=== PATIENT | female | born 1970 | race Caucasian/White ===

== ENCOUNTER 2016-12-07 09:46 | Outpatient (CLI) | payer OTHER | END 2016-12-07 09:47 | disposition home or self-care (01) | DX: N60.02 Solitary cyst of left breast (principal) ==

== ENCOUNTER 2017-05-04 14:08 | Outpatient (CLI) | payer OTHER ==
--- NOTE | 2017-05-05 09:05 | Ultrasound Report ---
THYROID ULTRASOUND: 05/04/2017 CLINICAL INDICATION: Followup cyst. 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 FINDINGS: The right lobe measures 5.0 x 1.8 x 1.7 cm, and the left lobe measures 5.7 x 1.3 x 1.3 cm. The isthmus measures 2 mm. The cyst in the upper pole of the right lobe is stable, measuring 2.3 x 1.4 x 1.2 cm (previously 2.3 x 1.5 x 1.2 cm). No new solid nodule is appreciated. IMPRESSION: STABLE CYST IN THE UPPER POLE OF THE RIGHT LOBE OF THE THYROID. JOB #: [id number] EXT JOB #:[id number]
== END 2017-05-04 14:09 | disposition home or self-care (01) ==
LOC: DI 14:08
PROVIDERS: ATTEND Physician Assistant Medical
DX: E04.1 Nontoxic single thyroid nodule (principal)
CPT/HCPCS: 76536

== ENCOUNTER 2017-07-26 09:13 | Outpatient (CLI) | payer OTHER ==
--- NOTE | 2017-07-26 10:44 | XRAY Report ---
MODIFIED BARIUM SWALLOW: 07/26/2017 CLINICAL INDICATION: Dysphagia. FINDINGS: Various consistencies of barium were prepared and administered in conjunction with speech pathology. There was no evidence of penetration or aspiration with any administered consistency. Plea se also refer to full report from speech pathology. IMPRESSION: NO EVIDENCE OF PENETRATION OR ASPIRATION. FLUOROSCOPY TIME: 51 SECONDS; 1 SPOT IMAGE OBTAINED (CINE FLUOROSCOPY RECORDED). JOB #: [id number] EXT JOB #:[id number]
== END 2017-07-26 09:14 | disposition home or self-care (01) ==
LOC: DI 09:13
PROVIDERS: ATTEND Nurse Practitioner Primary Care
DX: R13.10 Dysphagia, unspecified (principal)
CPT/HCPCS: 74230

== ENCOUNTER 2017-10-27 12:23 | Outpatient (CLI) | payer OTHER ==
[2017-10-29 14:27] LABS: TEST RESULT REPORT
[2017-11-01 16:37] LABS: LEAD (B) COLLECTION SAMPLE Venous
== END 2017-10-27 12:24 | disposition home or self-care (01) ==
LOC: LAB 12:23
PROVIDERS: ATTEND Physician Assistant Medical
DX: R23.2 Flushing (principal); M25.50 Pain in unspecified joint; R55 Syncope and collapse
CPT/HCPCS: 36415; 81599; 82175; 83520; 83655; 83825

== ENCOUNTER 2017-10-29 16:40 | Outpatient (CLI) | payer OTHER ==
--- NOTE | 2017-10-30 04:54 | MRI Report ---
EXAM: MRI BRAIN WITHOUT CONTRAST EXAM DATE: 10/29/2017 05:37 PM. CLINICAL HISTORY: ORTHOSTATIC SYNCOPE, FLUSHING, DYSPHAGIA COMPARISON: None. TECHNIQUE: Multiplanar, multisequence T1-weighted and fluid-sensitive MR sequences of the brain were performed. Sequences optimized for routine evaluation. Other: None. IV Contrast: None. FINDINGS: Brain Volume: Normal for age. Parenchyma/Dura: No mass, acute infarct or hemorrhage. No white matter lesions identified. Ventricles/Cisterns: No hydrocephalus. No abnormal extra-axial fluid collection or hemorrhage. Orbits: Symmetric and unremarkable. Sella Turcica: The pituitary gland, cavernous sinuses, suprasellar cistern and optic chiasm are unrem arkable. IAC: Symmetric and unremarkable. Vasculature: Normal signal flow void is seen in the major arterial structures at the skull base. Sinuses: No acute appearing sinus disease. Bones: No focal pathologic appearing marrow signal changes. Other: None. IMPRESSION: 1.No acute or focal intracranial abnormality. [facility] Referring Provider Line: [phone] SITE ID: [id number]
== END 2017-10-29 16:41 | disposition home or self-care (01) ==
LOC: DI 16:40
PROVIDERS: ATTEND Physician Assistant Medical
DX: R55 Syncope and collapse (principal); R23.2 Flushing; M25.50 Pain in unspecified joint; R13.10 Dysphagia, unspecified
CPT/HCPCS: 70551

== ENCOUNTER 2018-01-06 09:54 | Outpatient (CLI) | payer OTHER ==
--- NOTE | 2018-01-07 15:46 | Mammography Report ---
DIGITAL SCREENING MAMMOGRAM: 01/06/2018 CLINICAL INDICATION: A 47-year-old with history of late childbearing, history of benign right breast biopsy, for screening. COMPARISON: 11/2016, 09/2015, 09/2011. TECHNIQUE: Routine CC and MLO projections were obtained of the breasts. Bilateral laterally exaggerated craniocaudal views. FINDINGS: The breasts again demonstrate heterogeneously dense fibroglandular parenchyma bilaterally. Coarse and punctate, typically benign calcifications are present. There is a shifting pattern of circumscribed nodules bilaterally, compatible with waxing and waning cysts. No suspicious masses, clustered microcalcifications, or regions of architectural distortion are identified. IMPRESSION: BENIGN FINDINGS. RECOMMENDATION: ROUTINE ANNUAL SCREENING UNLESS OTHERWISE CLINICALLY INDICATED. BIRADS CATEGORY 2-BENIGN FINDINGS. STANDARD QUALIFYING STATEMENTS: 1. This examination was reviewed with the aid of Computer-Aided Detection (CAD). 2. A negative or benign imaging report should not delay biopsy if clinically suspicious findings are present. Consider surgical consultation if warranted. More than 5% of cancers are not identified by imaging. 3. Dense breasts may obscure an underlying neoplasm. TD: 01/07/2018 15:43
== END 2018-01-06 09:55 | disposition home or self-care (01) ==
LOC: DI 09:54
PROVIDERS: ATTEND Physician Assistant Medical
DX: Z12.31 Encounter for screening mammogram for malignant neoplasm of breast (principal)
CPT/HCPCS: 77067

== ENCOUNTER 2018-02-09 09:00 | Outpatient (CLI) | payer OTHER | END 2018-02-09 09:01 | disposition home or self-care (01) | LOC: LAB.R 09:00 | PROVIDERS: ATTEND Physician Assistant Medical | DX: R53.83 Other fatigue (principal); R23.2 Flushing | CPT/HCPCS: 81599; 83497 ==

== ENCOUNTER 2018-02-10 00:42 | Outpatient (CLI) | payer OTHER | END 2018-02-10 00:43 | disposition home or self-care (01) | LOC: LAB 00:42 | PROVIDERS: ATTEND Physician Assistant Medical | DX: R53.83 Other fatigue (principal); R23.2 Flushing; M25.50 Pain in unspecified joint | CPT/HCPCS: 36415; 81599; 82784; 83520 ==

== ENCOUNTER 2018-02-19 08:40 | Outpatient (CLI) | payer OTHER ==
[2018-02-19 09:22] LABS: BASOPHILS % (AUTO) 0.7 %; EOSINOPHILS # (AUTO) 0.1 10^3/uL (0.0-0.7); EOSINOPHILS % (AUTO) 1.6 %; HGB - HEMOGLOBIN 13.5 g/dL (12.0-16.0); LYMPHOCYTES # (AUTO) 1.4 10^3/uL (1.5-3.5); MEAN CORPUSCULAR HEMOGLOBIN 30.5 pg (27.0-31.0); MEAN CORPUSCULAR VOLUME 89.6 fL (81.0-99.0); MEAN PLATELET VOLUME 7.7 fL (7.9-10.8); MONOCYTES # (AUTO) 0.5 10^3/uL (0.0-1.0); MONOCYTES % (AUTO) 9.2 %; NEUTROPHILS % (AUTO) 60.5 %; PLT - PLATELET COUNT 239 10^3/uL (130-450); RED BLOOD COUNT 4.43 10^6/uL (4.20-5.40); RED CELL DISTRIBUTION WIDTH 12.8 % (12.0-15.0)
[2018-02-19 09:41] LABS: ALBUMIN 4.6 g/dL (3.2-5.5); ALBUMIN/GLOBULIN RATIO 1.8 (1.0-2.2); ALKALINE PHOSPHATASE 45 IU/L (42-121); ALT ALANINE AMINOTRANSFERASE 18 IU/L (10-60); AST ASPARTATE AMINOTRANSFERASE 19 IU/L (10-42); BILIRUBIN,TOTAL 0.6 mg/dL (0.2-1.0); BUN - BLOOD UREA NITROGEN 12 mg/dL (6-20); CALCIUM 9.2 mg/dL (8.5-10.3); CARBON DIOXIDE - CO2 25 mmol/L (21-32); CHLORIDE 104 mmol/L (101-111); CHOL/HDL RATIO 2.4 (<4.4); CHOLESTEROL 136 mg/dL; CREATININE 0.6 mg/dL (0.4-1.0); GFR - MDRD 107 (>89); GLUCOSE 84 mg/dL (70-100); HDL CHOLESTEROL 57 mg/dL; SODIUM 136 mmol/L (135-145); TOTAL PROTEIN 7.2 g/dL (6.7-8.2)
[2018-02-19 10:45] LABS: LDL CHOLESTEROL,DIRECT 69 mg/dL; LDLD/HDL RATIO 1.2 (<4.4)
== END 2018-02-19 08:41 | disposition home or self-care (01) ==
LOC: LAB 08:40
PROVIDERS: ATTEND Physician Assistant Medical
DX: Z00.00 Encounter for general adult medical examination without abnormal findings (principal)
CPT/HCPCS: 36415; 80053; 80061; 83721; 84443; 85025

== ENCOUNTER 2018-02-25 10:44 | Outpatient (CLI) | payer OTHER ==
[2018-02-25] MEDS ORDERED: IOPAMIDOL-300 100 ML VIAL ONE (11:12)
[2018-02-25] MEDS ORDERED: IOPAMIDOL-300 50 ML VIAL ONE (11:12)
[2018-02-25] MEDS ORDERED: IOPAMIDOL-300 50 ML VIAL PO ONE (13:03)
[2018-02-25] MEDS ORDERED: IOPAMIDOL-300 100 ML VIAL IVP ONE (13:03)
--- NOTE | 2018-02-25 14:01 | CT Report ---
CT CHEST WITH CONTRAST: 02/25/2018 CLINICAL INDICATION: Fatigue, flushing, polyarthralgia, dysphagia. TECHNIQUE: Axial CT images of the chest were obtained with 100 mL Isovue [address] is available for comparison. FINDINGS: The heart and great vessels are unremarkable. No hilar or mediastinal lymphadenopathy is present. No axillary adenopathy is seen. The lungs are clear. No effusion or pneumothorax is present. The thyroid demonstrates a cyst in the right lobe, previously seen on thyroid ultrasound of 05/04/2017. Please also refer to separate CT of the abdomen and pelvis. Osseous structures demonstrate minimal degenerative changes. IMPRESSION: NORMAL CHEST CT. In accordance with CT protocol optimization, one or more of the following dose reduction techniques were utilized for this exam: automated exposure control, adjustment of mA and/or KV based on patient size, or use of iterative reconstructive technique. TD: 02/25/2018 14:00
--- NOTE | 2018-02-25 14:05 | CT Report ---
CT ABDOMEN AND PELVIS WITH CONTRAST; 02/25/2018 CLINICAL INDICATION: Fatigue, flushing, polyarthralgia, dysphagia. COMPARISON: CT 08/19/2012. TECHNIQUE: Axial CT images of the abdomen and pelvis were obtained with 100 mL Isovue 300 intravenously as well as oral contrast. FINDINGS: ABDOMEN: The liver, spleen, pancreas, kidneys and adrenal glands are unremarkable. The gallbladder is not dilated. No bowel dilatation, free gas, or free fluid is present. No abdominal adenopathy is seen. PELVIS: The patient is status post hysterectomy. No pelvic adenopathy or free fluid is present. Osseous structures are unremarkable. IMPRESSION: POSTOPERATIVE CHANGES OF HYSTERECTOMY. OTHERWISE, NORMAL CT OF THE ABDOMEN AND PELVIS WITH CONTRAST. In accordance with CT protocol optimization, one or more of the following dose reduction techniques were utilized for this exam: automated exposure control, adjustment of mA and/or KV based on patient size, or use of iterative reconstructive technique. TD: 02/25/2018 14:03
== END 2018-02-25 10:45 | disposition home or self-care (01) ==
LOC: DI 10:44
PROVIDERS: ATTEND Physician Assistant Medical
DX: R53.83 Other fatigue (principal); R23.2 Flushing; M25.50 Pain in unspecified joint; R13.10 Dysphagia, unspecified; Z90.710 Acquired absence of both cervix and uterus
CPT/HCPCS: 71260; 74177; Q9967

== ENCOUNTER 2019-03-21 14:32 | Outpatient (CLI) | payer OTHER ==
--- NOTE | 2019-03-21 16:05 | XRAY Report ---
Reason: PATY DANLOS SYNDROME,NECK PAIN Procedure Date: 03/21/2019 Accession Number: [id number] / [id number] Procedure: XR - Cervical Spine w/Flex/Ext CPT Code: FULL RESULT: EXAM: CERVICAL SPINE RADIOGRAPHY EXAM DATE: 03/21/2019 03:15 PM. CLINICAL HISTORY: Paty-Danlos syndrome, neck pain. COMPARISONS: None. TECHNIQUE: 7 views. FINDINGS: Alignment: Preserved. No spondylolisthesis or scoliosis. No abnormal motion is seen on flexion and extension views. Bones: The cervical vertebral bodies and posterior elements are well-visualized from the skull base through C7-T1. No fractures or bone lesions. Disks: Normal. Disk heights are maintained. Facets: No degenerative disease. Neural Foramina: The neural foramina have bony patency bilaterally. Soft Tissues: Normal. No prevertebral soft tissue swelling. The visualized lung apices are clear. IMPRESSION: Preserved alignment of the cervical spine. Recommendation: Depending on the overall presentation, consider workup for underlying vascular etiology. Paty-Danlos predisposes to cardiovascular derangement in the thoracic outlet region. [facility]
== END 2019-03-21 14:33 | disposition home or self-care (01) ==
LOC: DI 14:32
PROVIDERS: ATTEND Internal Medicine Rheumatology
DX: Q79.6 Ehlers-Danlos syndromes (principal); M54.2 Cervicalgia
CPT/HCPCS: 72052

== ENCOUNTER 2019-07-21 08:03 | Outpatient (CLI) | payer OTHER ==
[2019-07-21 10:34] LABS: ALBUMIN 4.3 g/dL (3.2-5.5); ALBUMIN/GLOBULIN RATIO 1.5 (1.0-2.2); ALKALINE PHOSPHATASE 44 IU/L (42-121); ALT ALANINE AMINOTRANSFERASE 22 IU/L (10-60); AST ASPARTATE AMINOTRANSFERASE 21 IU/L (10-42); BILIRUBIN,TOTAL 0.4 mg/dL (0.2-1.0); BUN - BLOOD UREA NITROGEN 13 mg/dL (6-20); CALCIUM 9.1 mg/dL (8.5-10.3); CARBON DIOXIDE - CO2 27 mmol/L (21-32); CHLORIDE 102 mmol/L (101-111); CHOL/HDL RATIO 2.1 (<4.4); CHOLESTEROL 137 mg/dL; CREATININE 0.7 mg/dL (0.4-1.0); GFR - MDRD 89 (>89); GLUCOSE 75 mg/dL (70-100); HDL CHOLESTEROL 65 mg/dL; SODIUM 137 mmol/L (135-145); TOTAL PROTEIN 7.1 g/dL (6.7-8.2)
[2019-07-21 10:47] LABS: THYROID STIMULATING HORMONE 3.03 uIU/mL (0.34-5.60)
[2019-07-21 17:24] LABS: BASOPHILS # (AUTO) 0.1 10^3/uL (0.0-0.1); BASOPHILS % (AUTO) 0.6 %; EOSINOPHILS # (AUTO) 0.2 10^3/uL (0.0-0.7); EOSINOPHILS % (AUTO) 1.9 %; HGB - HEMOGLOBIN 12.6 g/dL (12.0-16.0); LYMPHOCYTES % (AUTO) 25.3 %; MEAN CORPUSCULAR HEMOGLOBIN 30.4 pg (27.0-31.0); MEAN CORPUSCULAR HGB CONC 32.4 g/dL (32.0-36.0); MEAN PLATELET VOLUME 10.4 fL (7.9-10.8); MONOCYTES # (AUTO) 0.6 10^3/uL (0.0-1.0); MONOCYTES % (AUTO) 7.3 %; NEUTROPHILS % (AUTO) 64.5 %; PLT - PLATELET COUNT 268 10^3/uL (130-450); RED BLOOD COUNT 4.14 10^6/uL (4.20-5.40); RED CELL DISTRIBUTION WIDTH 13.1 % (12.0-15.0); WHITE BLOOD COUNT 7.7 x10^3/uL (4.8-10.8)
== END 2019-07-21 08:04 | disposition home or self-care (01) ==
LOC: LAB.S 08:03
PROVIDERS: ATTEND Nurse Practitioner
DX: Z00.00 Encounter for general adult medical examination without abnormal findings (principal); Q79.6 Ehlers-Danlos syndromes; E04.1 Nontoxic single thyroid nodule; R55 Syncope and collapse; R53.83 Other fatigue
CPT/HCPCS: 36415; 80053; 80061; 82306; 82607; 83721; 84443; 85025

== ENCOUNTER 2019-07-25 12:17 | Outpatient (CLI) | payer OTHER ==
--- NOTE | 2019-07-25 15:41 | MRI Report ---
Reason: NEUROPATHY,PATY DANLOS SYNDROME Procedure Date: 07/25/2019 Accession Number: [id number] / [id number] Procedure: MRI - Cervical Spine W/O CPT Code: FULL RESULT: EXAM: MRI CERVICAL SPINE WITHOUT CONTRAST EXAM DATE: 07/25/2019 01:25 PM. CLINICAL HISTORY: Neuropathy, Paty-Danlos syndrome. Neck pain, left shoulder and arm pain. COMPARISONS: None. TECHNIQUE: Multiplanar, multisequence T1-weighted and fluid-sensitive sequences of the cervical spine without contrast. Other: None. FINDINGS: There is straightening of the normal cervical lordosis. There is a mild decrease in intervertebral disk space height at C3-C4, C4-C5, C5-C6, and C6-C7. There is diffuse desiccation of the disk spaces throughout the cervical spine. There are normal signal intensities demonstrated throughout the cervical spinal cord. The craniocervical junction is normal. The bone marrow signal intensities are normal. There is a T1 and T2 hyperintense lesion of the right thyroid lobe measuring 12 x 9 x 13 mm (9, 601). This may reflect a colloid cyst. C2-C3: There is no significant disk bulge, central or foraminal stenosis. The facets are normal. C3-C4: There is mild uncovertebral hypertrophy producing mild narrowing of the right neural foramen. The remainder of the level is normal. C4-C5: There is a small central extrusion of the disk with annular tear producing a minimal central canal stenosis. There is no significant foraminal stenosis. The facets are normal. C5-C6: There is a small disk osteophyte complex with superimposed central extrusion of the disk producing a mild central canal stenosis. There is no significant foraminal stenosis. The facets are normal. C6-C7: There is a small disk osteophyte complex with a right paracentral protrusion of the disk producing a mild central canal stenosis. The uncovertebral hypertrophy produces moderate right and mild left neural foraminal narrowing. C7-T1: There is no significant disk bulge, central or foraminal stenosis. The facets are normal. IMPRESSION: 1. There is a small central extrusion of the disk at C4-C5 with annular tear producing a minimal central canal stenosis. 2. There is a small disk osteophyte complex with superimposed central extrusion of the disk at C5-C6 producing a mild central canal stenosis. 3. There is a small disk osteophyte complex with a right paracentral protrusion of the disk producing a mild central canal stenosis at C6-C7.
--- NOTE | 2019-07-25 17:59 | MRI Report ---
Reason: NEUROPATHY,PATY DANLOS SYNDROME Procedure Date: 07/25/2019 Accession Number: [id number] / [id number] Procedure: MRI - Thoracic Spine W/O CPT Code: FULL RESULT: EXAM: MRI THORACIC SPINE WITHOUT CONTRAST EXAM DATE: 07/25/2019 01:39 PM. CLINICAL HISTORY: Neuropathy, Paty Danlos syndrome. COMPARISONS: None. TECHNIQUE: Multiplanar, multisequence T1-weighted and fluid-sensitive sequences of the thoracic spine from C7 to L1 without contrast. Other: None. FINDINGS: Spinal Canal: There is a small focal central area of abnormal increased T2 signal in the central cord from about T5-T6 through the conus at T12. This T2 hyperintensity is about 1 mm in diameter. No adjacent masses or other areas of abnormal signal. Alignment: No scoliosis or spondylolisthesis. Bone Marrow: T11 shows some increased T1 and T2 signal in the vertebral body which suppresses with STIR imaging. Similar but smaller focus is seen at T8. Disk Levels/Facets: Mild multilevel disk space height loss and disk dehydration from C7-T1 to about T8-T9. C7-T1: Unremarkable. T1-T2: Unremarkable. T2-T3: Unremarkable. T3-T4: Unremarkable. T4-T5: Unremarkable. T5-T6: Unremarkable. T6-T7: T6-T7 shows a tiny right paracentral disk bulge. No stenosis. Normal facets. T7-T8: T7-T8 shows a small right paracentral disk protrusion touching the cord, no abnormal signal. No stenosis. T8-T9: Unremarkable. T9-T10: Unremarkable. T10-T11: Unremarkable. T11-T12: Unremarkable. T12-L1: Unremarkable. Musculature: Normal. No edema or fatty atrophy. Other: The visualized lungs, mediastinum, and abdominal cavity are unremarkable. IMPRESSION: 1. 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 2. No mass or abnormal signal in the cord. 3. T7-T8 shows a small right paracentral disk protrusion which touches the cord. No abnormal cord signal otherwise. No stenosis. 4. T6-T7 likewise shows a tiny right paracentral disk bulge. No stenosis. [facility]
== END 2019-07-25 12:18 | disposition home or self-care (01) ==
LOC: DI 12:17
PROVIDERS: ATTEND Nurse Practitioner
DX: G62.9 Polyneuropathy, unspecified (principal); Q79.6 Ehlers-Danlos syndromes; M50.221 Other cervical disc displacement at C4-C5 level; M48.02 Spinal stenosis, cervical region; M25.78 Osteophyte, vertebrae; M51.24 Other intervertebral disc displacement, thoracic region
CPT/HCPCS: 72141; 72146

== ENCOUNTER 2019-08-01 09:17 | Outpatient (CLI) | payer OTHER ==
[2019-08-01] MEDS ORDERED: IOTHALAMATE MEGLUMINE 50 ML VIAL ONE (09:38)
[2019-08-01] MEDS ORDERED: BUFFERED LIDOCAINE 10 ML SYRINGE ONE (09:38)
[2019-08-01] MEDS ORDERED: GADOPENTETATE DIMEGLUMINE 5 ML VIAL IVP ONE ×2 (09:39→11:11)
[2019-08-01] MEDS ORDERED: BUFFERED LIDOCAINE 10 ML SYRINGE IU ONE (11:11)
[2019-08-01] MEDS ORDERED: IOTHALAMATE MEGLUMINE 50 ML VIAL IVP ONE (11:11)
--- NOTE | 2019-08-01 13:31 | MRI Report ---
Reason: NEUROPATHY,YONI DANLOS SYNDROME Procedure Date: 08/01/2019 Accession Number: [id number] / [id number] Procedure: MRI - Arthrogram Shoulder RT CPT Code: FULL RESULT: EXAM: RIGHT SHOULDER MRI ARTHROGRAM WITH CONTRAST EXAM DATE: 08/01/2019 12:19 PM. CLINICAL HISTORY: NEUROPATHY,YONI DANLOS SYNDROME. COMPARISON: ARTHROGRAM 08/01/2019 10:25 AM. TECHNIQUE: Multiplanar, multisequence T1-weighted and fluid-sensitive sequences of the shoulder after an arthrographic injection of dilute gadolinium, dictated under a separate exam. Other: None. FINDINGS: Acromioclavicular Region: The acromion is type I. The acromioclavicular joint is unremarkable. The coracoacromial and coracoclavicular ligaments are intact. There is no contrast or fluid in the subacromial/subdeltoid bursa. Glenohumeral Region: No subluxation. No loose bodies. The articular cartilage is unremarkable. The glenohumeral ligaments and joint capsule are unremarkable. Bone Marrow: No fracture, marrow edema or bone lesions. Labrum: Free edge fraying at the superior aspect of the labrum. No discrete labral tear is seen. Biceps Tendon: The long head of the biceps tendon and biceps gabbie are intact. Musculature/Rotator Cuff: There is an approximately 1.1 x 0.9 cm low-grade partial thickness articular surface tear at the anterior distal aspect of the supraspinatus tendon. The infraspinatus, teres minor, and subscapularis tendons are unremarkable. No edema or fatty atrophy. Other: The subcutaneous tissues are unremarkable. IMPRESSION: 1. Free edge fraying of the superior aspect of the labrum. No discrete labral tear is seen. 2. Focal low-grade partial-thickness articular surface tear at the anterior distal aspect of the supraspinatus tendon. [facility]
--- NOTE | 2019-08-01 17:06 | XRAY Report ---
Reason: NEUROPATHY,YONI DANLOS SYNDROME Procedure Date: 08/01/2019 Accession Number: [id number] / [id number] Procedure: FL - Arthrogram Needle Placement CPT Code: FULL RESULT: EXAM: RIGHT SHOULDER ARTHROGRAPHIC INJECTION WITH FLUOROSCOPIC GUIDANCE EXAM DATE: 08/01/2019 10:26 AM. CLINICAL HISTORY: NEUROPATHY,YONI DANLOS SYNDROME. Right shoulder pain with limited range of motion COMPARISON: None. TECHNIQUE: The risks, benefits, and alternatives of the procedure were discussed with the patient. All questions were answered. Written and verbal consent were obtained. The right glenohumeral joint was marked under fluoroscopy and prepped and draped in a sterile manner. Local anesthesia was performed with 1% lidocaine. A 22-gauge needle was then inserted into the glenohumeral joint. 10 mL of a solution containing 25% 1% lidocaine, 25% iodinated contrast, and a 1:200 dilution of gadolinium contrast in sterile saline was then injected. The needle was removed without immediate complication. Other: None. Fluoroscopy Time: 29 seconds. Number of Images: 3. FINDINGS: Bones and joints: No fracture or subluxation. Injection: Fluoroscopic images demonstrate needle placement and contrast in the right glenohumeral joint. No contrast extravasation outside of the glenohumeral joint. IMPRESSION: Successful fluoroscopically guided arthrographic injection of the right shoulder prior to MRI. [facility]
== END 2019-08-01 09:18 | disposition home or self-care (01) ==
LOC: DI 09:17
PROVIDERS: ATTEND Nurse Practitioner
DX: M75.101 Unspecified rotator cuff tear or rupture of right shoulder, not specified as traumatic (principal); Q79.6 Ehlers-Danlos syndromes
CPT/HCPCS: 23350; 73222; 77002; Q9961

== ENCOUNTER 2019-08-03 10:20 | Outpatient (CLI) | payer OTHER ==
--- NOTE | 2019-08-03 15:50 | Mammography Report ---
Reason: SCREENING MAMMO Procedure Date: 08/03/2019 Accession Number: [id number] / [id number] Procedure: MGS - Screening Mammo Dig Bilat CPT Code: FULL RESULT: EXAM: Screening Mammo Dig Bilat DATE: 08/03/2019 10:52 AM CLINICAL HISTORY: Routine screening TECHNIQUE: (B) - Bilateral CC and MLO views were obtained. COMPARISON: 01/06/2018, 12/07/2016, 10/03/2015 PARENCHYMAL PATTERN: (VD) - The breasts demonstrate extremely dense parenchyma bilaterally, limiting the sensitivity of mammography. FINDINGS: No significant interval change. There are no suspicious masses, calcifications, or areas of distortion. Left breast nodule consistent with a cyst has decreased in size. IMPRESSION: Negative examination. BI-RADS category 1. RECOMMENDATION: (ANNUAL) - Recommend routine annual screening mammography. BI-RADS CATEGORY: (1) - Negative. STANDARD QUALIFYING STATEMENTS: 1. This examination was not reviewed with the aid of Computer-Aided Detection (CAD). 2. A negative or benign imaging report should not preclude biopsy if clinically suspicious findings are present. 3. Dense breasts may obscure an underlying neoplasm. 4. This examination was reviewed without the aid of 3D breast imaging (tomosynthesis).
== END 2019-08-03 10:21 | disposition home or self-care (01) ==
LOC: DI.S 10:20
PROVIDERS: ATTEND Nurse Practitioner
DX: Z12.31 Encounter for screening mammogram for malignant neoplasm of breast (principal)
CPT/HCPCS: 77067

== ENCOUNTER 2019-09-12 11:17 | Outpatient (CLI) | payer OTHER ==
[2019-09-12 12:02] LABS: CREATINE KINASE MB 1.9 ng/mL (0.6-6.3)
== END 2019-09-12 11:18 | disposition home or self-care (01) ==
LOC: LAB 11:17
PROVIDERS: ATTEND Family Medicine
DX: R07.89 Other chest pain (principal)
CPT/HCPCS: 36415; 82553; 84484

== ENCOUNTER 2021-08-18 23:52 | Emergency (ER) | payer BC, OTHER ==
--- NOTE | 2021-08-19 02:37 | ED Physician Documentation ---
PD HPI ABD PAIN - Stated complaint Stated Complaint: ABD PX - Chief complaint Chief Complaint: Abd Pain - History obtained from History obtained from: Patient - History of Present Illness Timing - onset: Enter time (21:30), Today Timing - details: Abrupt onset Pain level now: 4 Quality: Sharp Location: Periumbilical Improved by: Laying still Worsened by: Palpation Associated symptoms: No: Fever, Nausea, Vomiting Similar symptoms before: Has not had sx before Recently seen: Not recently seen - Additional information Additional information: since approximately 9:30 PM tonight, while lying on floor at home stretching, sudden onset severe tearing abdominal pain, predominantly infraumbilical area radiating to right groin and right lower back. pain has improved but not resolved. Patient has EDS (not yet subtyped) and is particularly concerned about AAA (she does not have any known h/o aneurysm). Review of Systems Constitutional: reports: Reviewed and negative Cardiac: reports: Reviewed and negative Respiratory: reports: Reviewed and negative GI: reports: Abdominal Pain. 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 - Past Surgical History Past Surgical History: Yes /SENIOR WRITER: Hysterectomy, Other - Present Medications Home Medications: Ambulatory Orders Medication Instructions Recorded Confirmed Citalopram [CeleXA] 10 mg PO ONCE 08/19/21 08/19/21 Estradiol [Estrace] 42.5 gm VG DAILY 08/19/21 08/19/21 - Allergies Allergies/Adverse Reactions: Allergies Allergy/AdvReac Type Severity Reaction Status Date / Time cephalexin [From Keflex] Allergy Unknown Verified 08/19/21 00:01 Penicillins Allergy Unknown Verified 08/19/21 00:01 Sulfa (Sulfonamide Allergy Unknown Verified 08/19/21 00:01 Antibiotics) valacyclovir [From Valtrex] Allergy Unknown Verified 08/19/21 00:01 vancomycin Allergy Unknown Verified 08/19/21 00:01 - Social History Does the pt smoke?: No Smoking Status: Never smoker Does the pt drink ETOH?: No Does the pt have substance abuse?: No - Immunizations Immunizations are current?: Yes PD ED PE NORMAL - Vitals Vital signs reviewed: Yes - General General: Alert and oriented X 3, No acute distress, Well developed/nourished - Cardiac Cardiac: RRR, No murmur - Respiratory Respiratory: No respiratory distress, Clear bilaterally - Abdomen Abdomen: Soft, Other (mild TTP midline immediately inferior to umbilicus without rebound or guarding) - Derm Derm: Normal color, Warm and dry - Extremities Extremities: No edema Results - Vitals Vitals: Oxygen O2 Source Room air - Labs Labs: Laboratory Tests 08/19/21 08/19/21 03:04 03:04 WBC 7.5 RBC 4.19 L Hgb 12.8 Hct 38.8 MCV 92.6 MCH 30.5 MCHC 33.0 RDW 13.4 Plt Count 271 MPV 9.3 Neut # (Auto) 4.3 Lymph # (Auto) 2.4 [place] # (Auto) 0.6 Eos # (Auto) 0.1 Baso # (Auto) 0.0 Absolute Nucleated RBC 0.00 Nucleated RBC % 0.0 Sodium 140 Potassium 4.1 Chloride 101 Carbon Dioxide 27 Anion Gap 12.0 BUN 15 Creatinine 0.8 Estimated GFR (MDRD) 76 L Glucose 96 Calcium 9.7 - Rads (name of study) CT A/P angio with runoff Radiology: Prelim report reviewed, See rad report PD MEDICAL DECISION MAKING - ED course Complexity details: reviewed results, re-evaluated patient, considered differential, d/w patient ED course: CT A/P angio with runoff: no acute/emergent/concerning findings. No evidence of aneurysm or dissection. Results d/w patient and she is relieved that there are no vascular abnormalities on tonights testing. She says her symptoms have continued to improve and declines analgesics. She is comfortable with d/c home, follow up with primary care provider, return if worse. Departure - Departure Disposition: 01 Home, Self Care Clinical Impression: Abdominal pain Condition: Good Instructions: ED Abdominal Pain Unkn Cause Follow-Up: MARTHA SHEPHERD PA-C [Primary Care Provider] - Discharge Date/Time: 08/19/21 06:29
[2021-08-19 03:09] LABS: BASOPHILS % (AUTO) 0.5 %; EOSINOPHILS # (AUTO) 0.1 10^3/uL (0.0-0.7); EOSINOPHILS % (AUTO) 1.1 %; HCT - HEMATOCRIT 38.8 % (37.0-47.0); HGB - HEMOGLOBIN 12.8 g/dL (12.0-16.0); LYMPHOCYTES # (AUTO) 2.4 10^3/uL (1.5-3.5); LYMPHOCYTES % (AUTO) 31.8 %; MEAN CORPUSCULAR HEMOGLOBIN 30.5 pg (27.0-31.0); MEAN CORPUSCULAR VOLUME 92.6 fL (81.0-99.0); MEAN PLATELET VOLUME 9.3 fL (7.9-10.8); MONOCYTES # (AUTO) 0.6 10^3/uL (0.0-1.0); MONOCYTES % (AUTO) 8.6 %; NEUTROPHILS # (AUTO) 4.3 10^3/uL (1.5-6.6); NEUTROPHILS % (AUTO) 57.7 %; PLT - PLATELET COUNT 271 10^3/uL (130-450); RED BLOOD COUNT 4.19 10^6/uL (4.20-5.40); RED CELL DISTRIBUTION WIDTH 13.4 % (12.0-15.0); WHITE BLOOD COUNT 7.5 x10^3/uL (4.8-10.8)
[2021-08-19 03:19] LABS: CALCIUM 9.7 mg/dL (8.5-10.3); CREATININE 0.8 mg/dL (0.4-1.0); POTASSIUM 4.1 mmol/L (3.5-5.0)
[2021-08-19] MEDS ORDERED: IOPAMIDOL-300 100 ML VIAL ONE (03:24)
[2021-08-19] MEDS ORDERED: IOPAMIDOL-300 100 ML VIAL IVP ONE (04:02)
[2021-08-19 06:25] VITALS: BP 110/71
--- NOTE | 2021-08-19 08:41 | CT Report ---
PROCEDURE: ANGIO ABD RUNOFF W/WO - B/L INDICATIONS: abd. pain, h/o EDS CONTRAST: IV CONTRAST: Isovue 300 ml: 125 PO CONTRAST: *NO PO CONTRAST TECHNIQUE: After the administration of intravenous contrast, 2 and 5 mm sections acquired from T12 to the feet, with optional delayed image acquisition from the knees to the feet. 3-dimensional maximum intensity projection (MIP) coronal and sagittal reformats, and/or 3-dimensional volume rendering reformatting w as then performed. For radiation dose reduction, the following was used: automated exposure control , adjustment of mA and/or kV according to patient size. COMPARISON: None. FINDINGS: Image quality: Excellent. Extravascular tissues: Lung bases are clear. Heart size is normal. Liver and spleen are normal in size and enhancement. Gallbladder is unremarkable Biliary system is non dilated. Pancreas enhances normally. No adrenal nodules. Kidneys are normal in size and enhancement, without hydronephrosis. Non opacified bowel loops demonstrate normal wall thickness and enhancement. No free fluid or air. No retroperitoneal or mesenteric adenopathy. Trace fat-containing ventral hernia is present. Bladder wall thickness is normal. No inguinal hernias or adenopathy. No suspicious bony lesions. No verte bral body compression fractures. Abdominal aorta: No areas of hemodynamically significant stenosis, vascular occlusion, dissection or aneurysmal dilation. Right lower extremity: The common, internal and external iliac arteries demonstrate no areas of hemo dynamically significant stenosis, vascular occlusion, dissection or aneurysmal dilation. The common a nd superficial femoral as well as profunda arteries demonstrate no areas of hemodynamically significa nt stenosis, vascular occlusion, dissection or aneurysmal dilation. Popliteal artery is widely patent . There is a trifurcation below the knee. The anterior posterior tibial arteries as well as peroneal arteries demonstrate no areas of hemodynamically significant stenosis, vascular occlusion, dissection or aneurysmal dilation. The extent of the foot. Left lower extremity: The common, internal and external iliac arteries demonstrate no areas of hemod ynamically significant stenosis, vascular occlusion, dissection or aneurysmal dilation. The common an d superficial femoral as well as profunda arteries demonstrate no areas of hemodynamically significan t stenosis, vascular occlusion, dissection or aneurysmal dilation. Popliteal artery is widely patent. There is a trifurcation below the knee. The anterior posterior tibial arteries as well as peroneal a rteries demonstrate no areas of hemodynamically significant stenosis, vascular occlusion, dissection or aneurysmal dilation. They extend to the foot. IMPRESSION: 1. Lower extremity vessels demonstrate three-vessel runoff without areas of hemodynamically significa nt stenosis, vascular occlusion, aneurysmal dilation or dissection. The above findings are concordant with preliminary report. Reviewed by: Candie Corona MD on 08/19/2021 8:40 AM PDT Approved by: Candie Corona MD on 08/19/2021 8:40 AM PDT Station ID: [id number]
== END 2021-08-19 06:29 | disposition home or self-care (01) ==
LOC: ED 23:52
DX: R10.33 Periumbilical pain (principal); M54.5 Low back pain
CPT/HCPCS: 36415; 75635; 80048; 85025; 99283; 99284; Q9967

== ENCOUNTER 2024-01-07 08:00 | Outpatient (CLI) | payer BC | END 2024-01-07 23:59 | disposition home or self-care (01) | LOC: LAB.S 08:00 | PROVIDERS: ATTEND Physician Assistant Medical | DX: J02.9 Acute pharyngitis, unspecified (principal); E04.1 Nontoxic single thyroid nodule | CPT/HCPCS: 36415; 84443; 85025; 87070; 87077 ==

== ENCOUNTER 2024-01-07 17:28 | Outpatient (CLI) | payer BC ==
[2024-01-07 17:42] LABS: BASOPHILS # (AUTO) 0.1 10^3/uL (0.0-0.1); BASOPHILS % (AUTO) 0.3 %; EOSINOPHILS % (AUTO) 0.2 %; HCT - HEMATOCRIT 40.2 % (37.0-47.0); HGB - HEMOGLOBIN 13.1 g/dL (12.0-16.0); LYMPHOCYTES # (AUTO) 1.4 10^3/uL (1.5-3.5); LYMPHOCYTES % (AUTO) 8.2 %; MEAN CORPUSCULAR HEMOGLOBIN 29.7 pg (27.0-31.0); MEAN CORPUSCULAR HGB CONC 32.6 g/dL (32.0-36.0); MEAN CORPUSCULAR VOLUME 91.2 fL (81.0-99.0); MEAN PLATELET VOLUME 9.3 fL (7.9-10.8); MONOCYTES # (AUTO) 0.4 10^3/uL (0.0-1.0); MONOCYTES % (AUTO) 2.6 %; NEUTROPHILS # (AUTO) 14.6 10^3/uL (1.5-6.6); NEUTROPHILS % (AUTO) 88.3 %; PLT - PLATELET COUNT 282 10^3/uL (130-450); RED BLOOD COUNT 4.41 10^6/uL (4.20-5.40); RED CELL DISTRIBUTION WIDTH 12.7 % (12.0-15.0); WHITE BLOOD COUNT 16.5 x10^3/uL (4.8-10.8)
[2024-01-07 18:17] LABS: THYROID STIMULATING HORMONE 1.37 uIU/mL (0.34-5.60)
== END 2024-01-07 17:29 | disposition home or self-care (01) ==
LOC: LAB 17:28
PROVIDERS: ATTEND Physician Assistant Medical
DX: E04.1 Nontoxic single thyroid nodule (principal); J02.9 Acute pharyngitis, unspecified
CPT/HCPCS: 36415; 84443; 85025